=== PATIENT | male | born 2000 | race Caucasian/White ===

== ENCOUNTER 2021-11-25 19:54 | Emergency (ER) | payer SELFPAY ==
[~2021-11-25] VITALS: Ht 177.8 cm; Wt 87.7 kg
[2021-11-25 20:29] VITALS: BP 121/82; PULSE 84; TEMP 98.1
[2021-11-25] MEDS ORDERED: CEPHALEXIN500 M1 PO (23:07)
== END 2021-11-25 21:30 | disposition home or self-care (01) ==
LOC: COL.ER 19:54
DX: L60.0 Ingrowing nail (principal); Z28.311 Partially vaccinated for COVID-19

== ENCOUNTER 2022-06-24 23:33 | Emergency (ER) | payer SELFPAY ==
[~2022-06-24] VITALS: Ht 177.8 cm; Wt 81.8 kg
[~2022-06-24 23:33] MED LIST: CEPHALEXIN500 M1 PO
[2022-06-24 23:47] LABS: HEMATOCRIT 45.3 % (42.0-52.0); HEMOGLOBIN 16.9 g/dl (13.5-18.0); MEAN CELL VOLUME 82 fl (80.0-100.0); MEAN CORPUSCULAR HEMOGLOBIN 30 pg (27-31); MEAN CORPUSCULAR HGB CONC 37 g/dl (33.0-37.0); MEAN PLATELET VOLUME 10.1 fl (7.4-10.4); PLATELET COUNT 354 K/mm3 (130-400); RED BLOOD COUNT 5.56 M/mm3 (4.20-5.60); REDCELL DISTRIBUTION WIDTH-CV 13.2 % (11.5-14.5)
[2022-06-24 23:59] LABS: PROTHROMBIN TIME 11.9 SECONDS (9.7-12.8)
[2022-06-25 00:02] LABS: PARTIAL THROMBOPLASTIN TIME 18.5 SECONDS (26.0-37.0)
[2022-06-25 00:03] LABS: ALANINE AMINOTRANSFERASE 33 U/L (0-55); ALBUMIN 4.4 gm/dL (3.5-5.0); ALKALINE PHOSPHATASE 76 U/L (40-150); ANION GAP 15 mmol/L (7-16); AST,SGOT 21 U/L (5-34); BILIRUBIN,TOTAL 0.6 mg/dL (0.2-1.2); BLOOD UREA NITROGEN 15 mg/dL (9-21); CALCIUM 9.4 mg/dL (8.4-10.2); CARBON DIOXIDE 22 mmol/L (22-29); CHLORIDE 105 mmol/L (98-107); GLUCOSE 154 mg/dL (70-99); POTASSIUM 3.7 mmol/L (3.5-4.5); SODIUM 142 mmol/L (136-145); TOTAL PROTEIN 6.7 gm/dL (6.2-8.1)
[2022-06-25 00:04] LABS: ACETAMINOPHEN < 1.0 ug/mL (10-30); ALCOHOL(ethanol),MEDICAL < 10 mg/dL (0-10); SALICYLATE < 5.0 mg/dL (15.0-30.0)
[2022-06-25 00:09] LABS: BAND 1 % (0-10); EOSINOPHIL 1 % (0-4); LYMPHOCYTE 54 % (20.0-51.0); METAMYELOCYTE 1 % (0-0); NEUTROPHILS 39 % (42.0-75.2); PLATELET ESTIMATE NORMAL (NORMAL)
[2022-06-25 00:27] LABS: TROPONIN-I < 0.010 ng/mL (0.00-0.033)
[2022-06-25 01:28] LABS: COLLECTION METHOD IN
[2022-06-25 01:38] LABS: AMORPHOUS CRYSTAL Present (NOT PRESENT); MUCOUS Present (NOT PRESENT); SQUAMOUS EPITHELIAL None Seen /hpf (0-10); URINE APPEARANCE Clear (CLEAR/HAZY); URINE BACTERIA None Seen /hpf (NONE SEEN); URINE BLOOD Negative (NEGATIVE); URINE COLOR Yellow (YELLOW); URINE GLUCOSE Negative (NEGATIVE); URINE KETONE Negative (NEGATIVE); URINE NITRATE Negative (NEGATIVE); URINE PROTEIN(semi-quant) Negative (NEGATIVE); URINE RBC 0-2 /hpf (0-2)
[2022-06-25 01:44] LABS: TRICYCLIC ANTIDEPRESS URINE NEGATIVE
[2022-06-25 02:56] VITALS: BP 107/58; PULSE 108; TEMP 97.9
== END 2022-06-25 02:57 | disposition home or self-care (01) ==
LOC: COL.ER 23:33
PROVIDERS: Emergency Medicine
DX: R55 Syncope and collapse (principal); R25.9 Unspecified abnormal involuntary movements; R51.9 Headache, unspecified; M79.10 Myalgia, unspecified site; Z20.822 Contact with and (suspected) exposure to COVID-19
CPT/HCPCS: J1885; J2060; J7030; J7120